=== PATIENT | male | born 1985 | race Caucasian/White ===

== ENCOUNTER → 2016-08-04 | Outpatient (CLI) | payer MEDICAID | LOC: FCPNEURO 21:30 | PROVIDERS: ATTEND Nurse Practitioner Family | DX: R53.83 Other fatigue (principal); G47.00 Insomnia, unspecified ==

== ENCOUNTER 2017-02-10 12:07 | Emergency (ER) | payer MEDICAID ==
[2017-02-10 12:30] VITALS: RESP 16; O2SAT 96
--- NOTE | 2017-02-10 15:31 | EDPHY ---
H & P Stated Complaint: sore throat dysphagia x 3 days, cough Time Seen by Provider: 02/10/17 14:58 HPI/ROS: CHIEF COMPLAINT: Sore throat, cough HISTORY OF PRESENT ILLNESS: The patient presents the ED with a 2 week history of sore throat and cough. The patient saw his primary care provider yesterday who advised the patient he had a viral syndrome. The patient experience worsening dyspnea today which prompted his visit to the emergency department. The patient denies significant past medical history. The patient does have occasional reactive airway disease. He uses a inhaler sporadically. The patient denies any asymmetric calf pain or swelling. The patient denies any travel outside the [place]. The patient complains of moderate generalized odynophagia without significant trismus or asymmetric odynophagia. REVIEW OF SYSTEMS: A comprehensive 10 point review of systems is otherwise negative aside from elements mentioned in the history of present illness. Source: Patient Exam Limitations: No limitations - Personal History Current Tetanus/Diphtheria Vaccine: Unsure Current Tetanus Diphtheria and Acellular Pertussis (TDAP): Unsure - Medical/Surgical History Hx Asthma: No Hx Chronic Respiratory Disease: No Hx Diabetes: No Hx Cardiac Disease: No Hx Renal Disease: No Hx Cirrhosis: No Hx Alcoholism: No Hx HIV/AIDS: No Hx Splenectomy or Spleen Trauma: No Other PMH: chest surgery - Social History Smoking Status: Never smoked - Physical Exam Exam: General Appearance: Alert, no distress Eyes: Bilateral pharyngeal erythema, exudate and fascicular lesions consistent with a viral pharyngitis, no peritonsillar abscess, no significant trismus ENT, Mouth: Mucous membranes moist Respiratory: There are no retractions, lungs are clear to auscultation Cardiovascular: Regular rate and rhythm Gastrointestinal: Abdomen is soft and nontender, no masses, bowel sounds normal Neurological: A&O, normal motor function, normal sensory exam, normal cranial nerves Skin: Warm and dry, no rashes Musculoskeletal: Neck is supple nontender Extremities: symmetrical, full range of motion Constitutional: Initial Vital Signs Temperature (C) 37.0 C 02/10/17 12:27 Heart Rate 79 02/10/17 12:27 Respiratory Rate 16 02/10/17 12:27 Blood Pressure 122/81 H 02/10/17 12:27 O2 Sat (%) 96 02/10/17 12:27 O2 Delivery Mode Room Air Allergies/Adverse Reactions: No Known Allergies Allergy (Unverified 12/26/15 18:33) Home Medications: Medication Instructions Recorded Albuterol [Ventolin Hfa Inhaler] 2 puffs IH QID PRN #1 mdi 02/10/17 Dexamethasone [Decadron 4 MG (*)] 4 mg PO DAILY #2 tab 02/10/17 Medical Decision Making - Diagnostics Imaging Results: Imaging Impressions Chest X-Ray 02/10/17 15:08 Impression: Mild airways disease ED Course/Re-evaluation: The patient presents to the ED for evaluation of a persistent cough and sore throat. Given the patient's complaints of significant dyspnea he was taken for a chest x-ray which demonstrates no evidence of an obvious pneumonia. The patient's lung exam demonstrates no evidence of significant wheezing or decreased air movement. Regarding the patient's sore throat he has evidence of a viral pharyngitis. His strep test is negative. The patient will be given a prescription for Decadron to take x1 day. The patient should continue to use his albuterol as needed for cough. He has a follow-up appointment with his primary care provider tomorrow. Differential Diagnosis: Differential diagnosis considered includes asthma, bronchitis, pneumonia, pharyngitis - Data Points Laboratory Results: 02/10/17 02/10/17 Unknown Unknown Group A Strep Screen NEGATIVE (NEGATIVE) Group A Strep DNA Pending Departure - Departure Disposition: Home, Routine, Self-Care Clinical Impression: Acute pharyngitis Condition: Good Instructions: Pharyngitis (ED) Additional Instructions: 1. Please take Decadron as directed for next day. 2. I recommend using your albuterol inhaler every 4 hours as needed for cough. 3. Please follow up with your primary care provider as scheduled. Referrals: Radha Mckeon NP [Primary Care Provider] - As per Instructions
[2017-02-10 15:49] VITALS: BP 121/87; PULSE 81; TEMP 98.4
== END 2017-02-10 15:49 | disposition home or self-care (01) ==
DX: J02.9 Acute pharyngitis, unspecified (principal)

== ENCOUNTER 2017-05-07 22:22 | Emergency (ER) | payer MEDICAID ==
[2017-05-07 22:39] VITALS: BP 131/88; RESP 14; TEMP 99; O2SAT 98
--- NOTE | 2017-05-07 22:43 | CPEKG ---
Heart Rate: 84 RR Interval: 714 P-R Interval: 112 QRSD Interval: 78 QT Interval: 340 QTC Interval: 402 P Mena: 60 QRS Mena: 70 T Wave Mena: 13 EKG Severity - NORMAL ECG - EKG Impression: SINUS RHYTHM Electronically Signed By: Perez Tsang 09-May-2017 07:50:48
--- NOTE | 2017-05-07 23:09 | EDPHY ---
H & P Time Seen by Provider: 05/07/17 22:24 HPI/ROS: CHIEF COMPLAINT: I can't breathe History by patient HISTORY OF PRESENT ILLNESS: 31-year-old man who is 1 day postop from a septoplasty and turbinate removal by Dr. Maher is brought in by his girlfriend because of a feeling that he is getting lots of drainage in the back of his throat making it difficult for him to breathe. This is also making him feel very anxious and he was feeling lightheaded like he might faint. With this feeling of anxiety and faintness patient notice that he had some perioral numbness and tingling as well as in his fingers and his girlfriend noted some carpal spasm. He states that the bleeding and drainage from his nose has improved since yesterday. He has been using Afrin and saline nasal spray. He has been taking half of a Percocet tablet but he feels that the Percocet makes his heart rate and makes him feel worse. He has also been taking plain Tylenol with some relief. He complains of significant pain and pressure in his nasal sinus area. REVIEW OF SYSTEMS: As in HPI, and all other systems reviewed and are negative Smoking Status: Never smoked Physical Exam: General Appearance: Alert and no distress. Head: normocephalic, atraumatic, no sinus tenderness Eyes: Pupils equal and round no injection. Ears: TM clear Nose: Positive dried blood and visible splints OP: mucus membranes moist, no tonsillar enlargement, no exudates or bleeding, no drooling, no stridor Neck: no meningismus, no cervical nodes, no submandibular nodes Respiratory: Chest is nontender, lungs are clear to auscultation. No wheezes, rales, rhonchi Cardiac: regular rate and rhythm. S1, S2, no murmurs, gallops, rubs appreciated. Gastrointestinal: Abdomen is soft and nontender, no masses, bowel sounds normal. Musculoskeletal: Neck is supple and nontender. Extremities have full range of motion and are nontender. Skin: No rashes or lesions. Constitutional: Initial Vital Signs Temperature (C) 37.2 C 05/07/17 22:37 Heart Rate 74 05/07/17 22:37 Respiratory Rate 14 05/07/17 22:37 Blood Pressure 131/88 H 05/07/17 22:37 O2 Sat (%) 98 05/07/17 22:37 O2 Delivery Mode Room Air Allergies/Adverse Reactions: No Known Allergies Allergy (Unverified 12/26/15 18:33) Home Medications: Medication Instructions Recorded Albuterol [Ventolin Hfa Inhaler] 2 puffs IH QID PRN #1 mdi 02/10/17 Acetaminophen [Tylenol 325mg (*)] 05/07/17 Amoxicillin Trihydrate 500 mg PO Q12H 05/07/17 [Amoxicillin] Hydrocodone/APAP 5/325 [[place] 1 - 2 tab PO Q4H PRN #10 tab 05/07/17 5/325 (*)] Testosterone IM [Testosterone 05/07/17 100mg/ml IM inj (*)] oxyCODONE HCL/ACETAMINOPHEN 05/07/17 [Percocet 5-325 mg Tablet] MDM/Departure - [facility] ED Course/Re-evaluation: 31-year-old man presents 1 day postop from nasal surgery with no evidence of active bleeding or hemodynamic instability.. Patient's vital signs are all within normal limits. ECG shows normal sinus rhythm at a rate of 84 with normal axis, normal intervals and some sinus arrhythmia but no evidence of WPW or Brugada syndrome. Patient's history and physical is consistent with hyperventilation and normal postop course. He has been told not take ibuprofen because of bleeding after the surgery. I discussed the case with the PA transition assistant for [employer] Cao. She preferred the patient not start ibuprofen for pain. Because he has been having inadequate relief an adverse reaction to the Percocet but states he has had good reactions to Vicodin in the past will switch him to Vicodin. He has an appointment pending with Dr. Maher on Tuesday in just over 36 hr. We discussed return precautions. - Depart Disposition: Home, Routine, Self-Care Clinical Impression: Anxiety about health Dyspnea Qualifiers: Dyspnea type: other forms of dyspnea Qualified Code(s): R06.09 - Other forms of dyspnea Condition: Good Additional Instructions: You were seen by Dr. Aspen Beltran today. Switch from Percocet to Vicodin. Each Vicodin tablet contains acetaminophen 325 mg. If you take 2 Vicodin tablets at a time he may still take an additional 325 mg of acetaminophen safely and you may get better pain relief. He may take Benadryl up to 50 mg as needed for sleep. Continue to use the nasal spray, saline and Afrin and also try warm saline gargles for feeling that the drainage is stuck in your throat. Please follow-up with Dr. Maher as scheduled on Tuesday. Return for any worsening or new concerns. Prescriptions: Hydrocodone/APAP 5/325 [[place] 5/325 (*)] 1 - 2 tab PO Q4H PRN #10 tab PRN Reason: Pain, Moderate Referrals: [facility],. [Primary Care Provider] - As per Instructions
[2017-05-07 23:10] VITALS: PULSE 80
[2017-05-07] MEDS ORDERED: HYDROCOD/APAP 5/325 PREPACK#6 BTL TAKEHOME ONE (23:14)
== END 2017-05-07 23:25 | disposition home or self-care (01) ==
LOC: CED 22:22
DX: R06.09 Other forms of dyspnea (principal); F41.9 Anxiety disorder, unspecified

== ENCOUNTER 2017-10-22 11:43 | Emergency (ER) | payer MEDICAID ==
--- NOTE | 2017-10-22 11:56 | EDPHY ---
H & P Time Seen by Provider: 10/22/17 11:48 HPI/ROS: CHIEF COMPLAINT: Choking episode last night HISTORY OF PRESENT ILLNESS: This is a 32-year-old male whose had approximately 4 years of episodic difficulties similar to what he has happened last night however what happened last night some 7 hr ago was the worst. In the backdrop he notes that he has quite a bit difficulty sleeping quite restlessness. Furthermore, though this event happened last night and there was some surgical corrective surgery for sleep study issues this past April, he has been all in all doing quite a bit better ever since then until last night again. Furthermore he likens to what happened last night somewhat similar to what happened in April with the tingling into the hands and fingers but no spasm - such as would have been present at that time Recalls waking from a sound sleep, at 1:30 a.m., laying on a pillow, propped up - as is his usual custom, having a sense that he cannot get his air in. He denies having a feeling that there is fluid contents in his mouth. Furthermore when he went to sleep he did not have a full stomach is a only had 10 taco chips that evening as a snack with dinner at 6:30 a.m., some 7 hr prior. His partner was a woken by the sounds of what turned out to be him choking, she called it is name, no response. She quickly flexed on the lights and found to be ashen and mariscal but not diaphoretic, and not responsive at that time. It was not like he would look over at her. She denies any tonic-clonic movements. After period of several minutes he was able to respond to her but seemed to be shaken and worried and weak. He was able to go down the stairs and weight in the from home but again continued to be heal on well and was an hour and a half before he was significantly better. He does not feel like he is back to normal as he continues to feel weak. REVIEW OF SYSTEMS: Constitutional: No fever, no chills. Eyes: No discharge No diplopia ENT: No sore throat. Cardiovascular: No chest pain, no palpitations. Respiratory: No cough, shortness of breath, or wheezing. Gastrointestinal: No nausea vomiting or diarrhea. No abdominal pain. Genitourinary: No hematuria or frequency. Musculoskeletal: No back pain. Skin: No rashes. Neurological: No headache. There is some sense of tingling S to the forearms and hands but not the pair oral area or legs/feet. There is no carpopedal spasm 10 point ROS otherwise negative Source: Patient Exam Limitations: No limitations - Medical/Surgical History PMH: General Appearance: Alert, no distress. Afebrile. Normal phonation. No respiratory distress. He appears nervous, as well as scared. Eyes: Pupils equal and round no pallor or injection. No icterus ENT, Mouth: Mucous membranes moist Pharynx without erythema or exudate. TM Clear. Neck: No adenopathy. Supple. No JVD. Trachea in midline. Respiratory: There are no retractions, lungs are clear to auscultation. Chest wall: Nontender to palpation. No crepitus. Well-healed surgical scars from his prior breast reduction. Cardiovascular: Regular rate and rhythm. No murmur Abdomen: Soft and nontender, no masses, bowel sounds normal. Neurological: Ox3. No motor weakness. Sensation intact. Gait nl. Normal [id number], normal rapid altering movements, no dysdiadochokinesis, normal heel-leo. Skin: Warm and dry, no rashes. Musculoskeletal: No joint swelling. Extremities: No edema. Homans sign negative. No cords. Psychiatric: Normal affect. Patient is oriented X 3. There is no agitation Hx Asthma: No Hx Chronic Respiratory Disease: No Hx Diabetes: No Hx Cardiac Disease: No Hx Renal Disease: No Hx Cirrhosis: No Hx Alcoholism: No Hx HIV/AIDS: No Hx Splenectomy or Spleen Trauma: No Other PMH: chest surgery - Social History Smoking Status: Never smoked Constitutional: Initial Vital Signs Heart Rate 94 10/22/17 11:50 Respiratory Rate 16 10/22/17 11:50 Blood Pressure 133/92 H 10/22/17 11:50 O2 Sat (%) 92 10/22/17 11:50 O2 Delivery Mode Room Air Allergies/Adverse Reactions: No Known Allergies Allergy (Unverified 10/22/17 11:54) Home Medications: Medication Instructions Recorded Albuterol [Ventolin Hfa Inhaler] 2 puffs IH QID PRN #1 mdi 02/10/17 Testosterone IM [Testosterone 05/07/17 100mg/ml IM inj (*)] Medical Decision Making - Diagnostics EKG Interpretation: EKG interpretation. See trace master. This is normal sinus rhythm. Heart rate is 74. Normal QTC. No signs of pre-excitation. Normal EKG interpreted by me contemporaneously Imaging Results: Imaging Impressions Chest X-Ray 10/22/17 12:33 Impression: Suspect airways disease. No pneumonia. ED Course/Re-evaluation: He was observed. He declined any benzodiazepines. Normal hemogram Normal electrolytes Normal EKG Normal chest x-ray I discussed case the patient. I am concerned this might be an underlying seizure disorder though more apt to explain this on the basis of anxiety syndrome. That would seem to be more consistent with the prior events that have occurred in the past. Thereby I would recommend that he follow up in Neurology for screen for underlying seizure and consideration of any EG as well as mental health. He has been warned to avoid any operating machinery, driving a car or swimming or climbing until released by his family physician. Differential Diagnosis: My ED differential: Seizure, panic disorder, anxiety disorder, dissociative disorder, reflux, laryngospasm - Data Points Laboratory Results: 10/22/17 12:55 POC Sodium 140 mEq/L mEq/L (135-145) POC Potassium 3.9 mEq/L mEq/L (3.3-5.0) POC Chloride 101.0 mEq/L mEq/L (97-110) POC Total CO2 27 mEq/L mEq/L (22-31) POC BUN 10 mg/dL mg/dL (7-23) POC Creatinine 1.1 mg/dL mg/dL (0.7-1.3) POC Glucose 96 mg/dL mg/dL (70-100) POC Calcium 10.1 mg/dL mg/dL (8.5-10.4) Point of Care Test Results: CBC CBC Collection Date 10/22/17 CBC Collection Time 12:50 WBC 7.7 RBC 6.17 HGB 17.4 HCT 52.7 PLT 298 Neut # 5.0 Neut 64.1 LYMPH # 2.4 LYMPH 31.6 Other WBC # 0.3 Other WBC 4.3 MCV 85.4 Chemistry 10/22/17 12:55 POC Sodium 140 mEq/L mEq/L (135-145) POC Potassium 3.9 mEq/L mEq/L (3.3-5.0) POC Chloride 101.0 mEq/L mEq/L (97-110) POC Total CO2 27 mEq/L mEq/L (22-31) POC BUN 10 mg/dL mg/dL (7-23) POC Creatinine 1.1 mg/dL mg/dL (0.7-1.3) POC Glucose 96 mg/dL mg/dL (70-100) POC Calcium 10.1 mg/dL mg/dL (8.5-10.4) Basic Metabolic Panel BMP Collection Date 10/22/17 BMP Collection Time 12:50 Departure - Departure Disposition: Home, Routine, Self-Care Clinical Impression: Panic attack Condition: Good Additional Instructions: Even though you're evaluation here has been extensive, you do need follow-up by her PCP for consideration of long-term evaluation & therapy. However, since a seizure is way potential diagnostic possibility, you're not allowed to drive or work around machinery or swim until cleared by your family physician. Referrals: NONE *PRIMARY CARE P,. [Primary Care Provider] - As per Instructions Perico Anderson MD [Medical Doctor] - As per Instructions Stand Alone Forms: Work Excuse
--- NOTE | 2017-10-22 12:47 | CPEKG ---
Heart Rate: 74 RR Interval: 811 P-R Interval: 116 QRSD Interval: 82 QT Interval: 344 QTC Interval: 382 P Mchenry: 53 QRS Mchenry: 68 T Wave Mchenry: 7 EKG Severity - NORMAL ECG - EKG Impression: SINUS RHYTHM Electronically Signed By: Marc Carrasco 22-Oct-2017 12:57:54
[2017-10-22 13:49] VITALS: BP 130/90
== END 2017-10-22 13:44 | disposition home or self-care (01) ==
LOC: CED 11:43
DX: R09.89 Other specified symptoms and signs involving the circulatory and respiratory systems (principal); R20.2 Paresthesia of skin; F41.0 Panic disorder [episodic paroxysmal anxiety]
CPT/HCPCS: 71046-PO; 80048-PO